=== PATIENT | female | born 1990 | race Hispanic/Latino ===

== ENCOUNTER 2018-10-19 10:05 | Emergency (ER) | payer OTHER ==
[~2018-10-19] VITALS: Ht 167.6 cm; Wt 65.9 kg
[2018-10-19 10:05] VITALS: BP 110/57
[2018-10-19] MEDS ORDERED: MACR100C43 PO (10:48)
[2018-10-19] MEDS ORDERED: PYRI1TAB5 PO (10:48)
[2018-10-19] MEDS ORDERED: NITROFURANTOIN (MACROBID) 100 MG CAP PO ONE (11:00)
[2018-10-19] MEDS ORDERED: PHENAZOPYRIDINE 100 MG TAB PO ONE (11:00)
== END 2018-10-19 11:04 | disposition home or self-care (01) ==
LOC: M ED 10:05
DX: N39.0 Urinary tract infection, site not specified (principal); Z87.440 Personal history of urinary (tract) infections

== ENCOUNTER 2019-12-13 10:59 | Outpatient (CLI) | payer OTHER ==
[~2019-12-13] VITALS: Ht 167.6 cm; Wt 84.5 kg
[~2019-12-13 10:59] MED LIST: MACR100C43 PO; PYRI1TAB5 PO
[2019-12-13] MEDS ORDERED: PRENTAB9 PO (11:14)
[2019-12-13] MEDS ORDERED: PROT20TA11 PO (11:16)
[2019-12-13] MEDS ORDERED: TUMS500C PO (11:16)
[2019-12-13] MEDS ORDERED: ESSETAB4 PO (11:16)
[2019-12-13 11:21] VITALS: BP 112/60
[2019-12-13] MEDS ORDERED: LR 1,000 ML IV SCH (13:48)
[2019-12-13 13:59] VITALS: BP 109/58
[2019-12-13] MEDS ORDERED: PROMETHAZINE INJ 25 MG/ML VIAL (J2550) IV ONE (14:00)
[2019-12-13] MEDS ORDERED: MORPHINE 10 MG/ML 1ML VIAL (J2270) SC ONE (14:00)
[2019-12-13] MEDS ORDERED: MORPHINE 10 MG/ML 1ML VIAL (J2270) IV ONE (14:00)
[2019-12-13 17:36] VITALS: BP 114/56
--- NOTE | 2019-12-14 01:26 | IPNPDOC ---
Obstetrical Progress Note Date of Service Dec 13, 2019 Subjective 29yo G1 at 39wks present with c/o contractions. Reports active movement. No vaginal bleeding or LOF. O: vss, AF cat 1 tracing, ctx q 5-6 mins Gen: well appearing abd: soft, nttp cx: 2-3/75-3. - Patient provided with a therapeutic rest with total 0.5 mg of promethazine and 5 mg of IV morphine 10 mg subcutaneous. Patient was reexamined approximately 4 hours after with her cervix and the change in her contractions spaced out A/P: 29yo G1 @ 39WKS with contractions, not active labor Reassuring status -home with labor precautions and FKCs -f/u at next OB appt Objective Vital Signs Date Time Temp Pulse Resp B/P (MAP) Pulse Ox O2 Delivery O2 Flow Rate FiO2 12/13/19 17:36 72 18 114/56 (75) 12/13/19 14:34 Room Air 12/13/19 11:21 97.5 Tocometer Contractions: Yes Frequency: irregular Sterile Vaginal Examination Dilation: 3 cm Effacement (%): 70% Station: -2 Cervical Consistency: Medium Cervical Position: Posterior Postion/Presentation: Cephalic presentation Assessment and Plan Age: 29 : 1 Status: Reassuring Group B Streptococcus: Positive OTIS TRUJILLO MD. Dec 14, 2019 01:26
[2019-12-14] MEDS ORDERED: ACET-683 PO (09:05)
[2019-12-14] MEDS ORDERED: BENA25CA4 PO (09:06)
== END 2019-12-13 19:00 | disposition home or self-care (01) ==
LOC: M LDO 10:59
PROVIDERS: ATTEND Obstetrics & Gynecology
DX: O47.1 False labor at or after 37 completed weeks of gestation (principal); Z3A.39 39 weeks gestation of pregnancy
CPT/HCPCS: 59025; 96372; 96374; 96375; G0378; G0463; J2270

== ENCOUNTER 2019-12-14 08:47 | Inpatient (IN) | payer OTHER ==
[~2019-12-14] VITALS: Ht 167.6 cm; Wt 84.5 kg
[2019-12-14] VITALS (30 sets, daily range): BP systolic 98–150; BP diastolic 51–91
[~2019-12-14 08:47] MED LIST changes: +ESSETAB4 PO; +PRENTAB9 PO; +PROT20TA11 PO; +TUMS500C PO
[2019-12-14] MEDS ORDERED: ACET-683 PO (09:05)
[2019-12-14] MEDS ORDERED: BENA25CA4 PO (09:06)
[2019-12-14] MEDS ORDERED: PENICILLIN G POTASSIUM IV 5 MU in D5W MINI-BAG PLUS 100 ML IV STA (09:32)
[2019-12-14] MEDS ORDERED: LACTATED RINGER'S 1000 ML IV STA (09:32)
[2019-12-14] MEDS ORDERED: BUTORPHANOL 2 MG/ML INJ (J0595) IV ONE (09:45)
[2019-12-14] MEDS ORDERED: PROMETHAZINE INJ 25 MG/ML VIAL (J2550) IV ONE (09:45)
[2019-12-14 10:02] LABS: BASO % 0.4 % (0.0-1.0); EOS % 0.4 % (0.0-3.0); HEMOGLOBIN 12.6 g/dl (12.0-15.5); LYMPH % 20.7 % (24.0-44.0); MEAN CORPUSCULAR HEMOGLOBIN 30.1 pg (27.0-33.0); MEAN CORPUSCULAR HGB CONC 33.2 g/dl (32.0-36.5); MEAN CORPUSCULAR VOLUME 90.9 fl (80.0-96.0); MONO # 0.7 10^3/uL (0.0-0.8); MONO % 6.7 % (0.0-5.0); NEUTROPHILS # 6.9 10^3/uL (1.5-8.5); NEUTROPHILS % 70.9 % (36.0-66.0); PLATELET COUNT, AUTOMATED 203 10^3/uL (150-450); RED BLOOD COUNT 4.18 10^6/uL (4.00-5.40); WHITE BLOOD COUNT 9.7 10^3/uL (4.0-10.0)
--- NOTE | 2019-12-14 10:21 | HPEPDOC ---
Obstetrical History & Physical General Date of Admission Dec 14, 2019 at 09:29 History of Present Illness Labor Admission Note S: Reena is a 29yo at 40+0wks, EDC [id number]), who presented to LND for labor check. She was seen here overnight and morphine rested with no cervical change. She returned this AM with c/o SROM at 0820 and worsening regular/painful contractions. She reports +FM, denies vaginal bleeding. Blood Type O Positive GBS Positive complicated by Excessive weight gain of 42 lbs. Pt is Positive Carrier for SMA, spouse is NEGATIVE OB Hx: ETOP 2016, uncomplicated [facility] Hx: Pap ASCUS/HPV- Medical Hx: Migraine VOGEL, SMA carrier Sx Hx: WTE Social Hx: Negative x3 Psych Hx: denies Family Hx: Mother (lung Cancer), HTN, DM; Father HTN Chief Complaint: Contractions, term, LOF, term Information Provided By: Patient Care Care: Good Care Dating Final EDC: Dec 14, 2019 Final EDC for Daily Update: Dec 14, 2019 Final EDC by: LMP Antepartum Course Height (inches): 66 Pre- weight (lbs.): 145 Admission Weight (lbs.): 187 Change in Weight (lbs.): 42 Past Medical History Past Obstetrical History : Past Obstetrical History: Multigravida Social History Marital Status: Family situation: Spouse/partner home Psychosocial History: No pertinent psych hx * Smoker: non-smoker Alcohol: Denies Drugs: denies Imunizations Tdap status: current Allergies Coded Allergies: No Known Drug Allergies (Verified Allergy, Unknown, 10/19/18) Medications Scheduled Pantoprazole Sodium (Protonix) 20 Mg Tablet.dr, 1 TAB PO DAILY No.137/Iron/Folic Acd ( Vitamin Tablet) 1 Each Tablet, 1 TAB PO DAILY Scheduled PRN Acetaminophen (Acetaminophen) 500 Mg Tablet, 2 TAB PO Q6HP PRN for DISCOMFORT Diphenhydramine HCl (Benadryl) 25 Mg Capsule, 2 CAP PO QPMP PRN for INSOMNIA Physical Examination Physical Examination GENERAL: Alert and oriented times three. ABDOMEN: Gravid and non-tender to touch. FETUS: Is vertex (VTX) by sterile vaginal examination (SVE); EFW 3500g by Interleukin Geneticsopolds HEART RATE: Regular rate and rhythm. LUNGS: Observed normal, nonlabored breathing EXTREMITIES: No edema. Other physical findings O: VSS, afebrile, normotensive; pt did have 1x mild range BP during a contraction FHR 140s, moderate variability, + accels, no decels CTX: q2-5 minutes, moderate by palpation VE: 3.5/90/-2, anterior position Vital Signs/I&O Vital Signs Date Time Temp Pulse Resp B/P (MAP) Pulse Ox O2 Delivery O2 Flow Rate FiO2 12/14/19 09:26 83 20 132/76 (94) 12/14/19 09:12 97.9 12/14/19 08:59 100 Room Air Laboratory Data 24H LABS Laboratory Tests 2 12/14/19 09:33: Serology Scanned Report Hepatitis B Testing Pertinent Laboratoy Data Blood Type: O+ RBC Antibody Screen: Negative HIV: Negative Hepatitis B: Negative Rapid Plasma Reagin: Nonreactive Rubella: Immune Varicella: Immune Chlamydia/Gonorrhea: Negative Group B Streptococcus: Positive Cystic Fibrosis: Negative Glucose Tolerance Test: 86 Anatomy Ultrasound Ultrasound Date: July 26, 2019 Placenta Location: Anterior Normal Anatomy: Yes Assessment/Plan Assessment A: Reena is a 29yo at 40+0wks who is being admitted to LND for early active labor and SROM with regular painful contractions. O Positive; GBS Positive. Category I FHT. Plan P: Admit to LND, consented for labor, delivery, , pain management options, monitoring, operative vaginal delivery, C/S if appropriate and blood products PRN IV start, admission labs drawn If BP becomes mild range and/or pt has symptoms of Pre-E, will draw Pre-E labs PO and IV hydration Stadol/phen for pain control in early labor Can have epidural when more active PCN for GBS prophylaxis Expectant Management CEFM x2 Close maternal/ monitoring Reassess in 4 hours or sooner PRN Clear liquid diet Consult with OB as indicated Anticipate ELLI PHILLIP CNM Dec 14, 2019 10:21
[2019-12-14] MEDS: LR 1,000 ML IV SCH ×2 (11:40→14:17)
[2019-12-14] MEDS ORDERED: FENTANYL 2MCG/ML ROPIVACAINE 0.2% IN 0.9% NACL 100ML IVBAG As Ordered ONE (11:45)
--- NOTE | 2019-12-14 12:46 | IPNPDOC ---
Obstetrical Progress Note Date of Service Dec 14, 2019 Subjective Labor Progress Note S: Reena is a 29yo at 40wks admitted earlier this morning for SROM/early labor. Pt has continue to progress well with contractions becoming more painful. She is s/p stadol 2mg/phenergan 12.5mg and requested epidural. Objective O: VSS, afebrile, normotensive FHR 130s, minimal variability with + accels, no decelerations noted CTX by TOCO: q2-4 minutes VE: 8/100/-1 Vital Signs Date Time Temp Pulse Resp B/P (MAP) Pulse Ox O2 Delivery O2 Flow Rate FiO2 12/14/19 12:00 98.2 16 12/14/19 11:31 81 126/72 (90) 12/14/19 08:59 100 Room Air Sterile Vaginal Examination Postion/Presentation: Cephalic presentation Assessment and Plan Status: Reassuring Group B Streptococcus: Positive Anticipate: Vaginal Delivery Additional Comments A: 29yo at 40wks, active labor, Category II FHT with accels, overall reassuring (pt is s/p stadol/phenergan) P: Epidural now CEFM x2 close monitoring of maternal/ status Continue expectant management Anticipate Consult with OB if indicated ELLI DANIEL CNM Dec 14, 2019 12:46
[2019-12-14] MEDS ORDERED: LACTATED RINGER'S 1000 ML IV PRN (13:00)
[2019-12-14] MEDS ORDERED: EPIDURAL/PCA KEYS XX PRN (13:00)
[2019-12-14] MEDS ORDERED: NALOXONE INJ 0.4MG/1ML VIAL (J2310 PER 1MG) IV PRN (13:00)
[2019-12-14] MEDS ORDERED: FENTANYL/ROPIVACAINE/NACL BAG 100 ML EPIDURAL SCH (13:00)
[2019-12-14] MEDS ORDERED: diphenhydrAMINE 50MG/ML VIAL (J1200) IV PRN (13:00)
[2019-12-14] MEDS ORDERED: ONDANSETRON 4MG/2ML VIAL IV PRN (13:00)
[2019-12-14] MEDS ORDERED: REFRIGERATOR IV KEYS XX PRN (13:00)
[2019-12-14] MEDS ORDERED: EPIDURAL COMMENT XX SCH (13:00)
[2019-12-14] MEDS ORDERED: ePHEDrine SULFATE 25 MG/5 ML(5MG/ML) SYRINGE IV PRN (13:00)
[2019-12-14] MEDS ORDERED: OXYTOCIN 30 UNITS IN 0.9% NaCl 500ML IV BAG (J2590) As Ordered ONE (13:51)
[2019-12-14] MEDS ORDERED: PENICILLIN G POTASSIUM IV 2.5 MU in IV 1 EA IV SCH (15:00)
[2019-12-14] MEDS ORDERED: OXYTOCIN DRIP 30 UNITS in IV 1 EA IV SCH (16:43)
[2019-12-14] MEDS ORDERED: ACETAMINOPHEN 500 MG TAB PO PRN (16:45)
[2019-12-14] MEDS ORDERED: ANUSOL HC CREAM 30GM TOP PRN (16:45)
[2019-12-14] MEDS ORDERED: ACETAMINOPHEN TAB 650MG DOSE (2X325MG) PO PRN (16:45)
[2019-12-14] MEDS ORDERED: IBUPROFEN 600MG TAB PO PRN (16:45)
[2019-12-14] MEDS ORDERED: DOCUSATE SODIUM 100 MG CAP PO PRN (16:45)
--- NOTE | 2019-12-14 16:53 | DNPDOC ---
[facility] Delivery Note Delivery Note DATE OF DELIVERY: 12/14/2019 at 1619 PREDELIVERY DIAGNOSIS: 40+0 weeks' gestation and labor. POST DELIVERY DIAGNOSIS: Delivered. PROCEDURE:Spontaneous vaginal delivery [employer] SUPERVISOR: ZONIA Daniel ANESTHESIA: Epidural ESTIMATED BLOOD LOSS: 150 mL. FINDINGS: 6 pound 13 ounce (3100g) female , Score 8/9. DELIVERY SUMMARY: Reena is a 29yo G2 now P1011 who spontaneously progressed to C/C/+1 and had strong urge to push. Pt effectively pushed to deliver a viable female over a protected perineum. head delivered WALLY and restituted to ROT. Left anterior shoulder delivered with ease, followed by right posterior shoulder, then remainder of fetus delivered to maternal abdomen where she was dried and stimulated; strong/lusty cry. Cord was slightly short, so clamped x2 and cut by FOB less than 1 minute after ; cord blood collected for type and liat. Placenta delivered spontaneously with gentle downward traction and appears intact, 3VC. Pitocin bolus started, fundus firm at U-2, EBL 150mL. Upon inspection of perineum, vagina and cervix, only small abrasion noted periurethral and perineal, good hemostasis and no repair required. Family bonding well; anticipate uncomplicated PP course. ELLI DANIEL CNM Dec 14, 2019 16:52
[2019-12-14] MEDS ORDERED: SLF 3 ML SYR IV PRN (18:30)
[2019-12-14] MEDS: SLF 3 ML SYR IV SCH (20:40)
[2019-12-15] MEDS: IBUPROFEN 800 MG TAB PO PRN ×3 (02:40→21:34)
[2019-12-15] MEDS: DIBUCAINE 1% OINTMENT 30GM TOP PRN ×2 (02:50→21:00)
[2019-12-15 06:00] VITALS: BP 117/69
[2019-12-15] MEDS: SLF 3 ML SYR IV SCH (06:08)
--- NOTE | 2019-12-15 08:32 | IPNPDOC ---
Progress Note Date of Service: Dec 15, 2019 Day#: 1 Progress Note SUBJECT: Reena is a 29yo G2 now P1011 s/p uncomplicated spontaneous vaginal delivery at 40+0 weeks' at approximately 1619 hours on [id number] of a Female 6 pounds 13 ounces (3100 grams) with only minor abrasions not needing repair, doing well day #1. She has been ambulating, voiding spontaneously without issue and tolerating regular diet. Reports lochia is slowing WNL. She is pumping and formula supplementing. OBJECTIVE: VITAL SIGNS: Within normal limits, afebrile. Alert and oriented times three. Observed normal, nonlabored breathing. Abdomen: Fundus firm at U-1. Soft, NTTP. Minimal lochia. ASSESSMENT: PP Day #1, normal involution, stable and progressing well. Pumping and formula feeding. Vitals within normal limits, afebrile, hemodynamically stable with no evidence of infection. PLAN: 1. Routine PP care. 2. Tylenol and Motrin for pain. 3. Encourage frequent pumping. 4. Encourage ambulation. 5. Nexplanon for BC at PP appointment. 6. Plan to D/C home on PP Day #2. VS, I&O, 24H, Fishbone Vital Signs/I&O Vital Signs Date Time Temp Pulse Resp B/P (MAP) Pulse Ox O2 Delivery O2 Flow Rate FiO2 12/15/19 06:00 97.9 70 16 117/69 (85) 12/14/19 17:18 98 Room Air I&O- Last 24 Hours up to 6 AM 12/15/19 06:00 Intake Total 3855.0 ml Output Total 2100 ml Balance 1755.0 ml Laboratory Data 24H LABS Laboratory Tests 2 12/14/19 09:33: Serology Scanned Report Hepatitis B Testing 12/14/19 09:49: Immature Granulocyte % (Auto) 0.9, Neutrophils (%) (Auto) 70.9H, Lymphocytes (%) (Auto) 20.7L, Monocytes (%) (Auto) 6.7H, Eosinophils (%) (Auto) 0.4, Basophils (%) (Auto) 0.4, Neutrophils # (Auto) 6.9, Lymphocytes # (Auto) 2.0, Monocytes # (Auto) 0.7, Eosinophils # (Auto) 0.0, Basophils # (Auto) 0.0, Nucleated Red Blood Cells % (auto) 0.0 CBC/BMP Laboratory Tests 12/14/19 09:49 ELLI DANIEL CNM Dec 15, 2019 08:32
[2019-12-15] MEDS: PRENATAL VITAMINS CHEWABLE TABLET PO SCH (09:02)
[2019-12-15] MEDS: FERROUS SULFATE 325MG TAB PO SCH (09:02)
[2019-12-15 18:00] VITALS: BP 130/69
[2019-12-16 06:01] VITALS: BP 113/59
--- NOTE | 2019-12-16 06:32 | IPNPDOC ---
Progress Note Date of Service: Dec 16, 2019 Day#: 2 Progress Note Reena is a 29yo G2 now P1011 s/p uncomplicated spontaneous vaginal delivery at 40+0 weeks' at approximately 1619 hours on [id number] of a Female 6 pounds 13 ounces (3100 grams) with only minor abrasions not needing repair, doing well day #2. She has been ambulating, voiding spontaneously without issue and tolerating regular diet. Reports lochia is slowing WNL. She is pumping and formula supplementing. OBJECTIVE: VITAL SIGNS: Within normal limits, afebrile. Alert and oriented times three. Observed normal, nonlabored breathing. Abdomen: Fundus firm at U-2. Soft, NTTP. Minimal lochia. ASSESSMENT: PP Day #2, normal involution, stable and progressing well. Pumping and formula feeding. Vitals within normal limits, afebrile, hemodynamically stable with no evidence of infection. PLAN: 1. Routine PP care. 2. Tylenol and Motrin for pain. 3. Encourage frequent pumping. 4. Encourage ambulation. 5. Nexplanon for BC at PP appointment. 6. Plan to D/C home today VS, I&O, 24H, Fishbone Vital Signs/I&O Vital Signs Date Time Temp Pulse Resp B/P (MAP) Pulse Ox O2 Delivery O2 Flow Rate FiO2 12/16/19 06:01 98.1 79 17 113/59 (77) 100 Room Air I&O- Last 24 Hours up to 6 AM 12/16/19 06:00 Intake Total 300 ml Balance 300 ml BIPIN PRAKASH DO Dec 16, 2019 06:32
[2019-12-16] MEDS: FERROUS SULFATE 325MG TAB PO SCH (10:45)
[2019-12-16] MEDS: PRENATAL VITAMINS CHEWABLE TABLET PO SCH (10:45)
== END 2019-12-16 11:35 | disposition home or self-care (01) | DRG 807 ==
LOC: M LDO 08:47 → M LDI 09:29 → M OBS 19:05
PROVIDERS: ADMIT Registered Nurse Maternal Newborn; ATTEND Registered Nurse Maternal Newborn
PROC: 10E0XZZ Delivery of Products of Conception, External Approach (ICD-10-PCS; principal; 2019-12-14)
DX: O48.0 Post-term pregnancy (principal); Z37.0 Single live birth; Z3A.40 40 weeks gestation of pregnancy; O26.00 Excessive weight gain in pregnancy, unspecified trimester; O99.824 Streptococcus B carrier state complicating childbirth

== ENCOUNTER → 2020-11-20 | Outpatient (REF) | payer OTHER ==
[~2020-11-20] MED LIST changes: +ACET-683 PO; +BENA25CA4 PO
[2020-11-20 21:28] LABS: GC DNA AMPLIFICATION NEGATIVE (NEGATIVE)
== END ==
LOC: M LAB REF 16:24
PROVIDERS: ATTEND Physician Assistant
DX: R30.0 Dysuria (principal)

== ENCOUNTER 2021-02-05 16:42 | Emergency (ER) | payer OTHER ==
[~2021-02-05] VITALS: Ht 167.6 cm; Wt 68.2 kg
[2021-02-05 16:51] VITALS: BP 123/58
== END 2021-02-05 17:20 | disposition left against medical advice (07) ==
LOC: M ED 16:42
DX: Z53.21 Procedure and treatment not carried out due to patient leaving prior to being seen by health care provider (principal)